=== PATIENT | female | born 1945 | race Caucasian/White ===

== ENCOUNTER 2017-07-25 11:03 | Emergency (ER) | payer OTHER ==
[~2017-07-25] VITALS: Ht 165.1 cm; Wt 59.0 kg
[~2017-07-25 11:03] MED LIST: ADULT LOW DOSE81 MG PO; ASPIRIN EC81 M1 PO; CELEXA20 MG; CIPROFLOXACIN500 M1 PO; CLOPIDOGREL PO; COREG PO; LISINOPRIL2.5 MG PO; LOPRESSOR25; PLAVIX 75 MG TA75 MG; RISPERDAL0.5 MG; SEE COMMENTS; SIMVASTATIN40 MG PO; TRAMADOL 50 MG50 MG PO; ZOCOR 20 MG TAB20 M1 PO
[2017-07-25 13:15] VITALS: BP 152/40
== END 2017-07-25 13:16 | disposition home or self-care (01) ==
LOC: M.ERS 11:03
DX: M25.562 Pain in left knee (principal); I25.2 Old myocardial infarction; Z88.5 Allergy status to narcotic agent

== ENCOUNTER → 2018-07-05 | Outpatient (CLI) | payer OTHER | LOC: M.RAD 10:45 | DX: Z12.31 Encounter for screening mammogram for malignant neoplasm of breast (principal) ==

== ENCOUNTER → 2021-01-20 | Outpatient (CLI) | payer OTHER | LOC: M.MRI 11:25 | PROVIDERS: ATTEND Family Medicine | DX: M47.816 Spondylosis without myelopathy or radiculopathy, lumbar region (principal); M47.817 Spondylosis without myelopathy or radiculopathy, lumbosacral region; M41.86 Other forms of scoliosis, lumbar region; M48.061 Spinal stenosis, lumbar region without neurogenic claudication ==